=== PATIENT | male | born 2005 | race Caucasian/White ===

== ENCOUNTER 2024-09-11 09:41 | Outpatient (CLI) | payer OTHER, SELFPAY | END 2024-09-11 09:42 | disposition home or self-care (01) | LOC: NFLDREF 09-20 01:05 | PROVIDERS: PCP Physician Assistant Medical; Referring Provider Nurse Practitioner Pediatrics; Visit Provider Physician Assistant Medical | DX: Z00.01 Encounter for general adult medical examination with abnormal findings (principal); R10.31 Right lower quadrant pain; Z11.3 Encounter for screening for infections with a predominantly sexual mode of transmission; Z11.59 Encounter for screening for other viral diseases; Z11.4 Encounter for screening for human immunodeficiency virus [HIV] | CPT/HCPCS: 86592; 86703; 86706; 86803; 87340; 87491; 87591 ==

== ENCOUNTER 2024-11-06 10:35 | Outpatient (CLI) | payer OTHER, SELFPAY | END 2024-11-06 10:36 | disposition home or self-care (01) | LOC: NFLDREF 11-08 13:55 | PROVIDERS: PCP Physician Assistant Medical; Referring Provider Physician Assistant Medical; Visit Provider Physician Assistant Medical | DX: Z01.84 Encounter for antibody response examination (principal) | CPT/HCPCS: 86706 ==